=== PATIENT | male | born 2000 | race American Indian/Alaskan Native ===

== ENCOUNTER 2018-04-17 16:34 | Emergency (ER) | payer MEDICAID ==
[2018-04-17 17:00] VITALS: BP 145/74
[2018-04-17] MEDS ORDERED: MOTRIN PO ONE (17:21)
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
== END 2018-04-17 19:30 | disposition home or self-care (01) ==
LOC: ED 16:34
DX: S39.012A Strain of muscle, fascia and tendon of lower back, initial encounter (principal); Z91.048 Other nonmedicinal substance allergy status; V89.2XXA Person injured in unspecified motor-vehicle accident, traffic, initial encounter; Y93.89 Activity, other specified; Y92.488 Other paved roadways as the place of occurrence of the external cause; Y99.8 Other external cause status
CPT/HCPCS: 72100; 99283